=== PATIENT | female | born 1985 | race Native Hawaiian/Other Pacific Islander ===

== ENCOUNTER 2016-09-28 09:00 | Emergency (ER) | payer BC ==
[~2016-09-28] VITALS: Ht 160 cm; Wt 97.5 kg
[2016-09-28 08:50] VITALS: TEMP 97.7
[2016-09-28 09:36] LABS: PLATELET COUNT 268 K/uL (152-353)
[2016-09-28 10:15] LABS: POTASSIUM 4.2 mmol/L (3.6-5.2); SODIUM 138 mmol/L (136-145)
[2016-09-28 11:52] VITALS: BP 130/77
== END 2016-09-28 11:53 | disposition home or self-care (01) ==
LOC: ED 09:00
PROVIDERS: Specialist
DX: K80.20 Calculus of gallbladder without cholecystitis without obstruction (principal); R10.13 Epigastric pain
CPT/HCPCS: 36415; 80053; 82150; 83690; 83735; 84100; 85027; 85379; 96374; 99284; J1885

== ENCOUNTER 2016-10-05 09:35 | Day surgery (SDC) | payer BC ==
[2016-10-05 10:42] LABS: PLATELET COUNT 250 K/uL (152-353)
[2016-10-05 10:44] LABS: POTASSIUM 4.2 mmol/L (3.6-5.2); SODIUM 138 mmol/L (136-145)
[2016-10-05 10:55] LABS: PARTIAL THROMBOPLASTIN TIME 32.3 SECONDS (24.5-33.6)
== END 2016-10-05 15:07 | disposition home or self-care (01) ==
LOC: OR 09:35
PROVIDERS: Student in an Organized Health Care Education/Training Program
PROC: 0FT44ZZ Resection of Gallbladder, Percutaneous Endoscopic Approach (ICD-10-PCS; principal; 2016-10-05)
DX: K80.10 Calculus of gallbladder with chronic cholecystitis without obstruction (principal)
CPT/HCPCS: 36415; 80053; 84702; 85027; 85610; 85730; J0690; J1100; J1170; J1885; J2001; J2250; J2405; J2704; J2710; J3490; J7120